=== PATIENT | female | born 1985 | race Asian ===

== ENCOUNTER 2017-11-27 15:07 | Day surgery (SDC) | payer OTHER, MEDICAID ==
[~2017-11-27] VITALS: Ht 152.4 cm; Wt 52.0 kg
--- NOTE | 2017-11-27 09:55 | MH ---
cc: Meño King MD DATE OF ADMISSION: 11/27/2017 ADMITTING DIAGNOSIS: Spontaneous at 7-8 weeks gestation. HISTORY OF PRESENT ILLNESS: Patient is a 32-year-old female, para 0-1-0-1, LMP of 09/01/2017. She had ultrasound on 11/22/2017 which showed a nonviable measuring 7 weeks and 4 days. She is now admitted for a D and C. PAST MEDICAL HISTORY: PREVIOUS SURGERY: None. MEDICATIONS: Vitamins. ALLERGIES: NONE. TRANSFUSIONS: None. OBSTETRIC HISTORY: Previous delivery at 33, 34 weeks, healthy male. SOCIAL HISTORY: She is . She is employed in the [employer]. Tobacco and drugs are none. FAMILY HISTORY: Noncontributory. PHYSICAL EXAMINATION: Well-nourished, well-developed [place] female. HEENT: Normal. CHEST: Clear. HEART: Regular rate. BREASTS: Symmetrical and benign. PELVIC: Normal external genitalia and BUS. Vagina is normal. Cervix normal. Uterus about 8 weeks size. Adnexa nonpalpable. ASSESSMENT: As above. PLAN: She is now admitted for dilation and curettage. While in the office I explained the procedure, the risks, benefits and complications. Patient would like to proceed. MD MEHDI Varela/GLENN , 09:20 AM , 09:35 AM
[~2017-11-27 15:07] MED LIST: OMEGCAP PO; PREN29TA PO
[2017-11-27] MEDS ORDERED: LACTATED RINGER'S 1000 ML INJ 1,000 ML IV ONE (15:08)
[2017-11-27] MEDS ORDERED: KETOROLAC TROMETHAMINE 30 MG/ML (IVP) VIAL IV PUSH ONE (15:08)
[2017-11-27] MEDS ORDERED: ONDANSETRON HCL 4 MG/2 ML VIAL IV PUSH ONE (15:08)
[2017-11-27] MEDS ORDERED: PROPOFOL 200 MG/20 ML AMP IV ONE (15:08)
[2017-11-27] MEDS ORDERED: DEXAMETHASONE SOD PHOS 4 MG/ML VIAL IV ONE (15:08)
[2017-11-27] MEDS ORDERED: LIDOCAINE HCL 1% PF 5 ML SYRINGE OTHER ONE (15:08)
[2017-11-27] MEDS ORDERED: POVIDONE IODINE 5% (ANTISEPSIS KIT) 4 APPLICATIONS EACH NARE PRN (15:45)
[2017-11-27] MEDS ORDERED: ceFAZolin 1,000 MG/NS 100 ML IV SCH ×2 (15:45)
[2017-11-27] MEDS ORDERED: LACTATED RINGER'S 1000 ML IV PRN (15:45)
[2017-11-27] MEDS ORDERED: METOPROLOL TARTRATE 25 MG TAB PO PRN (15:45)
[2017-11-27] MEDS ORDERED: SODIUM CHLORID 0.9% 500 ML IV PRN (15:45)
[2017-11-27] MEDS ORDERED: CHLORHEXIDINE GLUCONATE 2 % 1 PACK (2 CLOTHS) TOPICAL PRN (15:45)
[2017-11-27] MEDS ORDERED: ACETAMINOPHEN 1000 MG/100 ML 100 ML IV SCH (16:00)
[2017-11-27 16:21] LABS: AUTOMATED NEUTROPHIL # 5.8 TH/MM3 (1.8-7.7); BASOPHIL # 0.1 TH/MM3 (0-0.2); BASOPHIL % 0.7 % (0.0-2.0); EOSINOPHIL # 0.1 TH/MM3 (0-0.4); EOSINOPHIL % 0.8 % (0.0-4.0); HEMATOCRIT 39.6 % (35.0-46.0); HEMOGLOBIN 13.7 GM/DL (11.6-15.3); LYMPH % 24.9 % (9.0-44.0); LYMPHOCYTE # 2.1 TH/MM3 (1.0-4.8); MEAN CELL VOLUME 88.6 FL (80.0-100.0); MEAN CORPUSCULAR HEMOGLOBIN 30.7 PG (27.0-34.0); MEAN CORPUSCULAR HGB CONC 34.7 % (32.0-36.0); MEAN PLATELET VOLUME 7.5 FL (7.0-11.0); MONO % 6.1 % (0.0-8.0); MONOCYTE # 0.5 TH/MM3 (0-0.9); NEUT % 67.5 % (16.0-70.0); PLATELET COUNT 313 TH/MM3 (150-450); RED BLOOD COUNT 4.47 MIL/MM3 (4.00-5.30); RED CELL DISTRIBUTION WIDTH 13.5 % (11.6-17.2); WHITE BLOOD COUNT 8.6 TH/MM3 (4.0-11.0)
[2017-11-27 17:24] LABS: BACTERIA, URINE RARE /hpf; BILIRUBIN, URINE NEG (NEG); BLOOD, URINE MOD (NEG); GLUCOSE,URINE NEG (NEG); KETONE, URINE 40 mg/dL (NEG); MUCUS URINE FEW /lpf (OCC); NITRITE,URINE NEG (NEG); PH, URINE 6.5 (5.0-8.5); SQUAMOUS EPITHELIAL CELL URINE 1 /hpf (0-5); URINE COLOR YELLOW (YELLW/STRAW); URINE LEUKOCYTE ESTERASE NEG (NEG)
[2017-11-27] MEDS ORDERED: APREPITANT 40 MG CAP ONE (17:31)
[2017-11-27] MEDS ORDERED: OXYTOCIN 10 UNIT/ML AMP ONE ×2 (17:39→17:57)
[2017-11-27] MEDS ORDERED: DO NOT ADM ANY ANTICOAGULANT DRUGS PRN (18:21)
[2017-11-27] MEDS ORDERED: MIDAZOLAM HCL 2 MG/2 ML VIAL ONE (18:27)
--- NOTE | 2017-11-27 18:34 | MP ---
cc: Meño King MD DATE OF OPERATION: 11/27/2017 PREOPERATIVE DIAGNOSIS: Spontaneous , 7-8 weeks' gestation. POSTOPERATIVE DIAGNOSIS: Spontaneous , 7-8 weeks' gestation. PROCEDURE: Suction and sharp dilation and curettage. ANESTHESIA: General, LMA. ESTIMATED BLOOD LOSS: About 200 mL. FLUIDS: 1 L of crystalloid. OBJECTIVE FINDINGS: After induction of adequate general, LMA anesthesia, patient was prepped and draped supine on the operating table, dorsal lithotomy position, sterile fashion, with the bladder being drained by in-and-out catheterization. Exam under anesthesia revealed an anterior 8-week size uterus, no adnexal masses. Heavy-weighted speculum placed in the posterior fornix of the vagina. Anterior lip of the cervix grasped with single-tooth tenaculum. Cervix and uterus easily sounded to 10 cm with a soft dilator, then dilated to a #20 Hanks. A #8 suction cup was passed to remove POC material, cavity curetted with a medium sharp curette and suction catheter passed again to remove loose tissue and debris. The cervical tenaculum sites were sutured with 3-0 chromic. All instruments removed. Uterus contracted down well to 6-week size. Minimal bleeding. Counts were correct. The patient's was taken out of the stirrups and she was awakened and taken to recovery room in good condition. MD MEHDI Varela/MARTA , 06:11 PM , 06:32 PM IKE
[2017-11-27 19:30] VITALS: BP 96/65; PULSE 61; RESP 15; O2SAT 100
[2017-11-27] MEDS ORDERED: METOCLOPRAMIDE HCL 10 MG/2 ML VIAL IV PRN (20:00)
== END 2017-11-27 19:45 | disposition home or self-care (01) ==
LOC: HSDC 15:07
PROVIDERS: ATTEND Obstetrics & Gynecology
DX: O03.4 Incomplete spontaneous abortion without complication (principal); Z01.818 Encounter for other preprocedural examination
CPT/HCPCS: 01965; 59812; 81001; 85025; 86850; 86900; 86901; 88305; J0131; J0690; J1100; J1885; J2250; J2405; J2590; J3010; J7120; J8501